=== PATIENT | male | born 1955 | race Caucasian/White ===

== ENCOUNTER 2024-04-18 23:57 | Inpatient (IN) | payer OTHER, MEDICARE, BC ==
[2024-04-19 02:07] VITALS: BMI 26.4
[2024-04-19] MEDS ORDERED: Ondansetron ODT 4 MG TAB PO PRN (02:31)
[2024-04-19] MEDS ORDERED: Ondansetron PF 4 MG/2 ML Vial IVP PRN (02:31)
[2024-04-19] MEDS ORDERED: Acetaminophen 650 MG Suppository PR PRN (02:31)
[2024-04-19] MEDS ORDERED: Acetaminophen 325 MG TAB PO PRN (02:31)
[2024-04-19] MEDS ORDERED: Nitroglycerin 0.4 MG TAB (25 Tab Bottle) SL PRN (02:36)
[2024-04-19 03:12] LABS: #Basophils 0.03 10x3/uL (0.0-0.2); #Eosinphils Less than 0.03 10x3/uL (0.0-0.7); %Basophils 0.3 % (0.0-1.0); %Lymphocytes 6.3 % (21.0-51.0); %Monocytes 2.3 % (0.0-10.0); %Neutrophils 90.7 % (42.0-75.0); Hematocrit 39.8 % (42.0-52.0); Hemoglobin 13.9 g/dL (14.0-18.0); Mean Corpuscular HGB CONC 34.9 g/dL (32.0-36.0); Mean Corpuscular Hemoglobin 33.5 pg (27.0-31.0); Mean Corpuscular Volume 95.9 fL (78.0-98.0); Mean Platelet Volume 10.1 fL (7.4-10.4); Platelet Count 158 10x3/uL (130-400); RBC Distribution Width 13.1 % (11.5-14.5); Red Blood Cell (RBC) Count 4.15 mill/uL (4.70-6.10)
[2024-04-19 03:27] LABS: Hemoglobin A1c 5.3 % (4.0-6.0)
[2024-04-19 03:29] LABS: Alcohol Less than 10.0 mg/dL (Less than 10)
[2024-04-19 03:32] LABS: Anion Gap 12 mmol/L (10-20); BUN (Urea Nitrogen) 22 mg/dL (8.4-25.7); Calc. Creatinine Clearance 92 mL/min (70-130); Calcium 9.2 mg/dL (7.8-10.44); Carbon Dioxide 26 mmol/L (23-31); Cardiac Risk 3.1 (Less than 4.5); Chloride 105 mmol/L (98-107); Cholesterol 203 mg/dl (< 200 Desired); Estimated GFR 86; Glucose 134 mg/dL (80-115); HDL Cholesterol 65 mg/dL (>60 Neg Risk); LDL Cholesterol, Calculated 121 mg/dL; Lipase 47 U/L (8-78); Magnesium 2.2 mg/dL (1.6-2.6); Sodium 139 mmol/L (136-145); Triglycerides 84 mg/dL (Less than 150)
[2024-04-19 03:33] LABS: Troponin I Less than 0.010 ng/mL (< 0.028)
[2024-04-19] MEDS: Lactated Ringer's 1,000 ML IV SCH (04:28)
[2024-04-19] MEDS: Nitroglycerin 2% Ointment 1 INCH/1 GM Packet TOP SCH (05:32)
[2024-04-19 06:56] LABS: Troponin I Less than 0.010 ng/mL (< 0.028)
[2024-04-19] MEDS: Famotidine/PF 20 mg/2ml Vial SLOW IVP SCH (09:21)
[2024-04-19] MEDS: Aspirin Chewable 81 MG TAB PO SCH (09:52)
[2024-04-19] MEDS: Famotidine 20 MG TAB PO SCH (09:53)
[2024-04-19] MEDS ORDERED: Iopamidol 370 76% 100 ML VIAL ONE (15:39)
[2024-04-19] MEDS: Rosuvastatin 20 MG TAB PO SCH (20:56)
[2024-04-20] MEDS: Losartan 25 MG TAB PO SCH (08:42)
[2024-04-20] MEDS ORDERED: Communication Order-Pharmacy FS PRN (17:30)
[2024-04-21] MEDS: Sodium Chloride 0.9% 1,000 ML IV SCH (06:12)
[2024-04-21 07:15] LABS: #Basophils 0.03 10x3/uL (0.0-0.2); %Basophils 0.5 % (0.0-1.0); %Eosinophils 4.3 % (0.0-10.0); %Lymphocytes 30.2 % (21.0-51.0); %Neutrophils 55.8 % (42.0-75.0); Hematocrit 42.8 % (42.0-52.0); Hemoglobin 14.4 g/dL (14.0-18.0); Mean Corpuscular HGB CONC 33.6 g/dL (32.0-36.0); Mean Corpuscular Hemoglobin 32.5 pg (27.0-31.0); Mean Corpuscular Volume 96.6 fL (78.0-98.0); Mean Platelet Volume 10.4 fL (7.4-10.4); Platelet Count 168 10x3/uL (130-400); RBC Distribution Width 13.2 % (11.5-14.5); Red Blood Cell (RBC) Count 4.43 mill/uL (4.70-6.10)
[2024-04-21 08:39] LABS: Anion Gap 12 mmol/L (10-20); BUN (Urea Nitrogen) 14 mg/dL (8.4-25.7); Calc. Creatinine Clearance 101 mL/min (70-130); Calcium 8.8 mg/dL (7.8-10.44); Carbon Dioxide 23 mmol/L (23-31); Chloride 107 mmol/L (98-107); Estimated GFR 94; Glucose 99 mg/dL (80-115); Potassium 4.1 mmol/L (3.5-5.1); Sodium 138 mmol/L (136-145)
[2024-04-21] MEDS ORDERED: Heparin 10,000 UNITS/ 10 ML VIAL ONE (10:45)
[2024-04-21] MEDS ORDERED: fentaNYL 50 mcg/mL 1 mL Vial ONE (11:27)
[2024-04-21] MEDS ORDERED: Midazolam HCl 2 mg/2 ml Vial ONE (11:27)
[2024-04-21] MEDS ORDERED: Acetaminophen/Codeine 30-300mg Tablet PO PRN (12:09)
[2024-04-21] MEDS ORDERED: Sodium Chloride 0.9% 200 ML IV PRN (12:09)
[2024-04-21] MEDS: Sodium Chloride 0.9% 500 ML IV SCH (12:41)
[2024-04-21] MEDS ORDERED: Iopamidol 370 76% 100 ML VIAL ONE (12:54)
[2024-04-22 07:44] VITALS: BP 116/66; TEMP 98.1
== END 2024-04-22 10:55 | disposition home or self-care (01) | DRG 287 ==
LOC: 2NO 04-19 01:29 → OBSVTOIN 04-20 14:42
PROVIDERS: ADMIT Student in an Organized Health Care Education/Training Program; ATTEND Internal Medicine
PROC: 4A023N7 Measurement of Cardiac Sampling and Pressure, Left Heart, Percutaneous Approach (ICD-10-PCS; principal; 2024-04-21)
PROC: B2111ZZ Fluoroscopy of Multiple Coronary Arteries using Low Osmolar Contrast (ICD-10-PCS; 2024-04-21)
PROC: B2151ZZ Fluoroscopy of Left Heart using Low Osmolar Contrast (ICD-10-PCS; 2024-04-21)
DX: R07.89 Other chest pain (principal); F10.90 Alcohol use, unspecified, uncomplicated; I10 Essential (primary) hypertension; E78.5 Hyperlipidemia, unspecified; Z79.899 Other long term (current) drug therapy; Z79.82 Long term (current) use of aspirin
CPT/HCPCS: 36415; 74160; 78452; 80048; 80061; 80307; 83036; 83690; 83735; 84443; 84484; 85025; 93017; 93306; 93458; 99152; A9502; C1769; G0378; J1644; J2250; J3010; J7030; J7120; Q9967